=== PATIENT | female | born 1945 | race Caucasian/White ===

== ENCOUNTER 2019-01-08 05:30 | Day surgery (SDC) | payer MEDICARE, BC ==
[2019-01-08] MEDS ORDERED: Dextrose 5%-Lactated Ringers 1,000 ML IV SCH (06:15)
[2019-01-08] MEDS ORDERED: Ampicillin/Sulbactam Na 3 GM in Sodium Chloride 0.9% 100 ML IV ONE (07:15)
[2019-01-08] MEDS ORDERED: fentaNYL 100 MCG/2 ML SDV ONE (08:03)
[2019-01-08] MEDS ORDERED: Midazolam 1 MG/ML 2 ML SDV ONE (08:03)
[2019-01-08] MEDS ORDERED: Propofol 200 MG/20 ML SDV ONE ×2 (08:03→08:46)
[2019-01-08 10:13] VITALS: BP 122/94
--- NOTE | 2019-01-13 13:57 | OR ---
DATE OF PROCEDURE: 01/08/2019 PREOPERATIVE DIAGNOSES: 1. Epigastric pain. 2. Personal history of colonic polyps and family history of colon carcinoma. POSTOPERATIVE DIAGNOSES: 1. Epigastric pain with a large paraesophageal hernia and probable gastric volvulus. 2. Normal screening colonoscopy (no recurrent polyps identified). OPERATIVE PROCEDURE: 1. Esophagogastroduodenoscopy with antral biopsies for CLOtest (89216). 2. Flexible colonoscopy (47674). ANESTHESIA: IV sedation. INDICATION FOR PROCEDURE: This is a 73-year-old female presenting for evaluation of her upper GI tract related to some ongoing epigastric discomfort, presently is on ranitidine for that and is also to undergo colonoscopy with biopsies and/or polypectomy as indicated due to both family history of colon carcinoma and personal history of polyps. Potential risks of the procedure including bleeding and perforation were discussed, and the patient wishes to proceed. DETAILS OF PROCEDURE: The patient was taken to the operating room and placed in the left lateral decubitus position. IV sedation was administered, after which the upper GI endoscope was passed orally through the length of the esophagus, into the stomach with retroflexion view of the fundus, thereafter eventually through the pyloric channel and proximal duodenum. Findings included normal hypopharynx, larynx, upper esophageal sphincter, and esophageal body. The EG junction was noted to be shortened at around 35 cm with this being associated with significant hiatal hernia. As one passed the scope further into the stomach, the course of the stomach was quite distorted and there appeared to be a twisting pattern both seen on direct forward vision as well as retroflexion, consistent with a paraesophageal hernia that is becoming somewhat twisted in pattern on the gastric volvulus. The mucosa in this area of stomach was quite reddened and edematous consistent with some probable intermittent ischemia. Eventually, the gastric outlet could be identified and this was traversed and the pyloric channel and proximal duodenum were otherwise unremarkable. At this point, biopsies were obtained from the antrum and sent for CLOtest for H. pylori. Minimal bleeding from the biopsy site was seen and the procedure was then concluded. Attention was then taken to the colonoscopy. Initial digital rectal exam was performed and was unremarkable. Colonoscope was then placed into the rectum with retroflexion revealing uncomplicated hemorrhoidal columns. The scope was eventually passed to the cecum. The prep was fairly good with only a very small amount of liquid stool present. To that level, there were no diverticula, no areas of colitis, no polyps or other signs of neoplasia. The scope was then withdrawn, the above findings reconfirmed, and the procedure was then concluded. With regard to the gastric findings, the plan will be to proceed with CAT scan of the abdomen and pelvis to both evaluate the situation in the stomach as well as to rule out any other problem that might be associated with the patient's epigastric pain such as upper abdominal malignancies. This will be done this coming Saturday. We will see the patient back next Saturday for followup and establish treatment plan at that point. Chun Leyva MD /[id number]
== END 2019-01-08 10:30 | disposition home or self-care (01) ==
LOC: JP.SDS 05:30
PROVIDERS: ATTEND Surgery
DX: Z12.11 Encounter for screening for malignant neoplasm of colon (principal); K64.9 Unspecified hemorrhoids; K44.9 Diaphragmatic hernia without obstruction or gangrene; K31.89 Other diseases of stomach and duodenum; K21.9 Gastro-esophageal reflux disease without esophagitis; E03.9 Hypothyroidism, unspecified; E78.5 Hyperlipidemia, unspecified; Z88.2 Allergy status to sulfonamides; Z86.010 Personal history of colon polyps; Z80.0 Family history of malignant neoplasm of digestive organs
CPT/HCPCS: 43239; 87081; G0105; J0295; J2250; J2704; J3010; J7030; J7042

== ENCOUNTER 2019-01-16 09:41 | Inpatient (IN) | payer MEDICARE, BC ==
[~2019-01-16 09:41] MED LIST: Bupivacaine 0.5%/EPINEPHrine 1:200,000 50 ML MDV ONE
[2019-01-16] MEDS ORDERED: Acetaminophen 500 MG Tab PO ONE (10:00)
[2019-01-16] MEDS ORDERED: fentaNYL 250 MCG/5 ML SDV ONE ×2 (10:37→14:33)
[2019-01-16] MEDS ORDERED: Dexamethasone 4 MG/ML SDV ONE (10:37)
[2019-01-16] MEDS ORDERED: Glycopyrrolate 0.2 MG/ML 5 ML MDV ONE (10:37)
[2019-01-16] MEDS ORDERED: Propofol 200 MG/20 ML SDV ONE (10:37)
[2019-01-16] MEDS ORDERED: Ondansetron 4 MG/2 ML SDV ONE (10:37)
[2019-01-16] MEDS ORDERED: Neostigmine Methylsulfate 1 MG/ML 5 ML Syringe ONE (10:37)
[2019-01-16] MEDS ORDERED: Succinylcholine 200 MG/10 ML MDV ONE (10:37)
[2019-01-16] MEDS ORDERED: Rocuronium 50 MG/5 ML Vial ONE (10:37)
[2019-01-16] MEDS ORDERED: Scopolamine 1.5 MG Transdermal Patch TOP ONE (10:50)
[2019-01-16] MEDS ORDERED: Ropivacaine 44 ML, dexAMETHasone 8 MG, EPINEPHrine 0.4 MG, Sodium Chloride 0.9% 33.6 ML NERVRT SCH ×4 (11:00)
[2019-01-16] MEDS: Dextrose 5%-Lactated Ringers 1,000 ML IV SCH (13:24)
[2019-01-16] MEDS: cefOXitin 2 GM in Sodium Chloride 0.9% 50 ML IV ONE ×2 (14:25→16:48)
[2019-01-16] MEDS ORDERED: Lactated Ringers 1,000 ML ONE (15:01)
[2019-01-16] MEDS ORDERED: hydrOXYzine HCl 100 MG/2 ML SDV IM ONE (15:55)
[2019-01-16] MEDS ORDERED: Ondansetron 4 MG/2 ML SDV IVPUSH PRN (16:48)
[2019-01-16] MEDS ORDERED: HYDROmorphone 0.5 MG/0.5 ML Syringe IVPUSH PRN (16:48)
[2019-01-16] MEDS ORDERED: HYDROmorphone 1 MG/ML Syringe IV PRN (16:48)
[2019-01-16] MEDS ORDERED: Pantoprazole 40 MG Vial IV SCH (18:00)
[2019-01-16] MEDS: cefOXitin 2 GM in Sodium Chloride 0.9% 50 ML IV SCH (20:24)
[2019-01-16] MEDS: Metoprolol Tartrate 25 MG Tab PO SCH (20:24)
[2019-01-16] MEDS: Acetaminophen/HYDROcodone 325-5 MG Tab PO PRN (20:24)
[2019-01-17] MEDS ORDERED: Iopamidol 510 MG/ML 50 ML SDV PO ONE (00:11)
[2019-01-17] MEDS: cefOXitin 2 GM in Sodium Chloride 0.9% 50 ML IV SCH ×2 (02:40→07:51)
[2019-01-17] MEDS: Dextrose 5%-Lactated Ringers 1,000 ML IV SCH (02:40)
[2019-01-17] MEDS: Acetaminophen/HYDROcodone 325-5 MG Tab PO PRN ×4 (04:10→14:11)
--- NOTE | 2019-01-17 04:41 | CRLCR ---
Indication: Hiatal hernia Technique: Abdomen 2 view Comparison: None Findings/Impression: Two submitted images. Oral contrast has been administered. In the 1st image contrast is present within the distal esophagus and proximal stomach. Gastroesophageal junction is normal in position below the hemidiaphragm although there is some apparent rotation of the stomach extending into the left upper quadrant with some increased filling on the 2nd film. Note is made of prior surgery and this could represent postsurgical configuration, rotation of the stomach or an underlying proximal gastric lesion. Note is made of subcutaneous air along the chest/abdominal wall as well as small pneumoperitoneum and a right-sided Moises-Ferrer drain. Surgical clips are present in the right upper quadrant. Dilated loops of small bowel are present within the mid abdomen with a differential diagnosis of postoperative ileus or small-bowel obstruction. Right lower quadrant ostomy. Dictated by Brayan Lamar MD @ Jan 17 2019 4:32AM Signed by Dr. Brayan Lamar @ Jan 17 2019 4:39AM
[2019-01-17] MEDS: Levothyroxine 100 MCG, Levothyroxine 25 MCG PO SCH ×2 (07:38)
--- NOTE | 2019-01-17 07:52 | CRLCR ---
INDICATION: follow up UGI from earlier this morning HISTORY: Paraesophageal hernia repair. Evaluate for passage of contrast into the small bowel. COMPARISON: 01/17/2019, 0344 hours. TECHNIQUE: Single abdominal radiograph. FINDINGS: Pneumoperitoneum, consistent with the recent surgical procedure. There is a surgical drain in the right upper quadrant, with anastomotic sutures in the upper abdomen. Contrast is present within the stomach, and within the small bowel in the right lower quadrant. IMPRESSION: 1. Pneumoperitoneum, which is presumably related to the recent surgical procedure. By report, patient had a paraesophageal hernia repair. 2. There is contrast within the stomach and small bowel on the current exam. 3. Case discussed with Dr. Leyva of the referring clinical service, 01/17/2019, 0749 hours. Dictated by Delgado Alvarado MD @ 01/17/2019 7:50:26 AM Dictated by: Delgado Alvarado MD @ 01/17/2019 07:50:32 (Electronically Signed)
[2019-01-17] MEDS ORDERED: Dextrose 5%-Lactated Ringers 1,000 ML IV SCH (08:15)
[2019-01-17] MEDS: Celecoxib 200 MG Cap PO SCH (10:08)
[2019-01-17] MEDS: Aspirin 81 MG Tab.EC PO SCH (10:08)
[2019-01-17] MEDS: Metoprolol Tartrate 25 MG Tab PO SCH ×2 (10:08→20:05)
[2019-01-17] MEDS ORDERED: Pantoprazole 40 MG Tab.CR PO SCH (16:30)
[2019-01-18] MEDS: Acetaminophen/HYDROcodone 325-5 MG Tab PO PRN ×2 (04:22→08:38)
[2019-01-18] MEDS: Levothyroxine 100 MCG, Levothyroxine 25 MCG PO SCH ×2 (07:18)
[2019-01-18] MEDS ORDERED: Magnesium Hydroxide 400 MG/5 ML Susp 30 ML Cup PO PRN (07:59)
[2019-01-18] MEDS: Metoprolol Tartrate 25 MG Tab PO SCH ×2 (08:28→09:17)
[2019-01-18] MEDS: Celecoxib 200 MG Cap PO SCH (08:28)
[2019-01-18] MEDS: Aspirin 81 MG Tab.EC PO SCH (08:29)
[2019-01-18 09:18] VITALS: BP 118/59
--- NOTE | 2019-01-18 12:54 | DISCH ---
FINAL DIAGNOSES: 1. Recurrent paraesophageal diaphragmatic hernia. 2. Status post gastrostomy. 3. Gastric deserosalization, status post takedown of gastric adhesions. 4. Distended-appearing gallbladder consistent with chronic cholecystitis. 5. Treated hypothyroidism. 6. Hyperlipidemia. 7. Hypertension. 8. Recurrent dislocations of left hip. OPERATIVE PROCEDURE: This was done on 01/16, diagnostic laparoscopy with: 1. Repair of paraesophageal diaphragmatic hernia with mesh. 2. Takedown of previous gastrostomy. 3. Partial gastrectomy. 4. Cholecystectomy. SUMMARY: This is a 73-year-old, presenting with postprandial epigastric and right upper quadrant pain, who was noted to have a large recurrent paraesophageal diaphragmatic hernia, the last one being repaired in 2016. On day of admission, the patient underwent a diagnostic laparoscopy with repair of diaphragmatic hernia. The repair of this was somewhat simpler than expected. The pre-existing mesh was used to augment the repair, and the previous gastrostomy site which was still adherent, appeared to be distorting the stomach causing some of the gastric torsion and that was taken down. A portion of stomach was excised. Apart from that, there were some adhesions between the mesh and gastric fundus, which were also taken down. The patient's gallbladder was noted to be also quite distended and consistent with chronic cholecystitis, and cholecystectomy was performed. Postoperatively, the patient has done well. She is tolerating a full liquid diet without difficulty. The pain she had preoperatively seems to have abated. She will be discharged home on her usual home medications plus Flushing 5/325, 1 to 2 tabs q.4 hours p.r.n. pain #40 along with 2 doses of milk of magnesia which she can take p.r.n. for constipation. Follow up with Dr. Leyva at [facility] on 01/28/2019.
--- NOTE | 2019-01-19 08:37 | PN ---
DATE OF SERVICE: 01/17/2019 The patient has been afebrile with stable vital signs. She does not require much in the way of pain medications at this point and will be started on a full liquid diet. Laboratory studies look good, status post cholecystectomy yesterday. Initially, the upper GI x-rays did not show much in the way of gastric emptying, but later x-ray did show good emptying, so will be on a full liquid diet today. Will turn down IV rate, and she may be ready for discharge home tomorrow. Chun Leyva MD /[id number]
--- NOTE | 2019-01-20 08:57 | OR ---
DATE OF PROCEDURE: 01/16/2019 SURGEON: Chun Leyva MD PREOPERATIVE DIAGNOSIS: Recurrent paraesophageal diaphragmatic hernia with apparent gastric torsion on upper endoscopy. POSTOPERATIVE DIAGNOSES: 1. Recurrent paraesophageal diaphragmatic hernia with apparent gastric torsion on upper endoscopy. 2. Status post previous gastrostomy. 3. Area of gastric deserosalization, status post takedown of adhesions between gastric fundus and previously-placed mesh. 4. Distended and inflamed gallbladder consistent with chronic cholecystitis. OPERATIVE PROCEDURE: Diagnostic laparoscopy with, 1. Repair of recurrent paraesophageal diaphragmatic hernia with mesh (23869). 2. Takedown of gastrostomy (16195). 3. Partial gastrectomy (00638). 4. Cholecystectomy (27480). ANESTHESIA: General. BENCH MOLDER: Ladi Nichols PA-C. INDICATIONS FOR PROCEDURE: This is a 73-year-old with ongoing pain in the postprandial period that has been located in the epigastrium and toward the right of the abdomen. Recent endoscopy showed what appeared to be recurrent paraesophageal hernia, and some element of gastric torsion appeared evident at the time of the endoscopy as well. The plan is to proceed with a diagnostic laparoscopy and repair of the paraesophageal hernia. To what extent a new wrap needs to be undertaken, will be done under operative findings. Given the right-sided postprandial pain, we will also look at the gallbladder. If this appears to be diseased at all, we would proceed with concurrent cholecystectomy. Potential risks of procedure including bleeding, infection, injury to underlying viscera, possible incomplete relief of symptoms with the procedure were all reviewed as well as possibility of cardiopulmonary, septic, or hemorrhagic complications leading to , and the patient wishes to proceed. DETAILS OF PROCEDURE: The patient was taken to the operating room, and after general endotracheal anesthesia was induced, she was placed in a lithotomy position. Rivers catheter was inserted and the abdomen prepped and draped. At 15 cm inferior and 5 cm left of xiphoid process, a transverse incision was made and peritoneal cavity entered under direct vision with an Optiview trocar and inflated to 15 mmHg pressure with CO2. The laparoscope was then reinserted. No underlying trocar insertion site injuries were seen. Bilateral subcostal and transversus abdominis plane blocks were then placed, and at that point, 4 additional trocars were placed across the upper and mid abdomen. The initial finding was that of the previous gastrostomy being associated with quite a bit in the way of adhesions. The stomach was also adherent to the abdominal wall and this, with the onset of the new paraesophageal hernia, resulted in quite a bit in the way of distortion of the course of the stomach, creating the appearance of the torsion seen on upper endoscopy. The gastrostomy site was then taken down. This was initially taken away from the abdominal wall by means of electrocautery, and the cauterized edges of the stomach were then divided with the GUSTAVO purple loads and a small segment of stomach was delivered from the field. The patient's paraesophageal hernia was involving the left side of the fundus, prolapsing into an area along the existing esophagus. This area was gradually mobilized downward. Some of the stomach that was adherent to the previously placed mesh site was deserosalized during the course of that dissection, and that area was resected with a GUSTAVO stapler. At that point, the hernia was satisfactorily decompressed. The previously-placed mesh was then used with 0 Ethibond sutures reinforced with PTFE pledgets to close the defect to allow just the amount of volume of the esophagus. The Mckenna-type wrap was then reinforced with 2 additional 0 Ethibond sutures reinforced with PTFE pledgets using the remaining gastric fundus and wrapping around the distalmost esophagus. Once this phase was completed, we then examined the gallbladder. The gallbladder was quite enlarged, distended, and somewhat edematous in appearance, consistent with a probable chronic cholecystitis. Given this, we decided to proceed with a cholecystectomy. The gallbladder was retracted anteriorly and laterally and dissection began on the gallbladder neck and continued around the gallbladder neck/cystic duct junction. That area was well identified, as was the adjacent cystic artery. The cystic duct/gallbladder junction was then taken with a GUSTAVO blanco load, as this was quite edematous and looked like it might not hold the clips well. The artery was then divided with zi as well, and some additional branches were hemoclipped behind the gallbladder neck as it was dissected away from the liver. The gallbladder was then taken off the gallbladder bed with the Harmonic scalpel and delivered through the right lateral trocar site. At this point, no further problems noted. Moises-Ferrer drain was placed in the right lateral trocar site and placed into the area of the gallbladder bed. The trocars were then removed and the fascia at the 12 mm sites was closed with 0 Vicryl stitch and skin with 4-0 Vicryl skin stitch. The patient was taken to the recovery room in satisfactory condition. Physician reproductive healthcare assistant, Ladi Nichols, played an essential role in assisting in this case helping to position the patient, retract structures as needed, as well as suturing and cutting sutures when indicated. Her presence improved patient safety and decreased the operative time. Chun Leyva MD /[id number]
== END 2019-01-18 10:56 | disposition home or self-care (01) | DRG 328 ==
LOC: JP.MS 09:41 → JP.SDS 09:41 → EDSTATUS 11:00 → JP.MS 15:30
PROVIDERS: ADMIT Surgery; ATTEND Surgery
PROC: 0BUT4JZ Supplement Diaphragm with Synthetic Substitute, Percutaneous Endoscopic Approach (ICD-10-PCS; principal; 2019-01-16)
PROC: 0DQ44ZZ Repair Esophagogastric Junction, Percutaneous Endoscopic Approach (ICD-10-PCS; 2019-01-16)
PROC: 0FT44ZZ Resection of Gallbladder, Percutaneous Endoscopic Approach (ICD-10-PCS; 2019-01-16)
PROC: 0DB64ZZ Excision of Stomach, Percutaneous Endoscopic Approach (ICD-10-PCS; 2019-01-16)
DX: K44.9 Diaphragmatic hernia without obstruction or gangrene (principal); K31.89 Other diseases of stomach and duodenum; K81.1 Chronic cholecystitis; Z88.2 Allergy status to sulfonamides; Z79.82 Long term (current) use of aspirin; E03.9 Hypothyroidism, unspecified; E78.5 Hyperlipidemia, unspecified; I10 Essential (primary) hypertension; Z87.19 Personal history of other diseases of the digestive system; K66.0 Peritoneal adhesions (postprocedural) (postinfection); Z87.39 Personal history of other diseases of the musculoskeletal system and connective tissue
CPT/HCPCS: 36415; 74018; 74240; 80053; 82247; 83735; 83880; 84075; 84100; 84443; 85025; 85027; 93005; A9270-GY; C1713; C9113; J0171; J0330; J0694; J1100; J1170; J2405; J2704; J2710; J2795; J3010; J3410; J3490; J7042; J7050; J7120; Q9967

== ENCOUNTER 2022-03-28 12:03 | Emergency (ER) | payer MEDICARE, BC ==
[2022-03-28 12:23] VITALS: BP 138/70; PULSE 51
== END 2022-03-28 13:52 | disposition home or self-care (01) ==
LOC: JP.ED 12:03
DX: S76.012A Strain of muscle, fascia and tendon of left hip, initial encounter (principal); E03.9 Hypothyroidism, unspecified; E66.9 Obesity, unspecified; Z68.30 Body mass index [BMI] 30.0-30.9, adult; Z88.2 Allergy status to sulfonamides; Z79.82 Long term (current) use of aspirin; Z79.899 Other long term (current) drug therapy; Z90.710 Acquired absence of both cervix and uterus; X50.1XXA Overexertion from prolonged static or awkward postures, initial encounter
CPT/HCPCS: 73501-26-LT; 73501-LT; 99283

== ENCOUNTER 2023-10-28 08:04 | Day surgery (SDC) | payer MEDICARE, BC ==
[~2023-10-28 08:04] MED LIST changes: -Bupivacaine 0.5%/EPINEPHrine 1:200,000 50 ML MDV ONE; +Propofol 200 MG/20 ML SDV ONE; +fentaNYL 50 MCG/ML SDV ONE
[2023-10-28] MEDS: Lactated Ringers 1,000 ML IV SCH (09:52)
[2023-10-28] MEDS ORDERED: Propofol 200 MG/20 ML SDV ONE (10:17)
[2023-10-28 11:29] VITALS: BP 137/83; PULSE 63
== END 2023-10-28 11:34 | disposition home or self-care (01) ==
LOC: JP.SDS 08:04
PROVIDERS: ATTEND Student in an Organized Health Care Education/Training Program
DX: D12.4 Benign neoplasm of descending colon (principal); K59.00 Constipation, unspecified; Z86.010 Personal history of colon polyps; E78.5 Hyperlipidemia, unspecified; Z87.891 Personal history of nicotine dependence; Z79.82 Long term (current) use of aspirin; Z79.899 Other long term (current) drug therapy; Z88.2 Allergy status to sulfonamides
CPT/HCPCS: 45380; 88305; J2704; J3010; J7120

== ENCOUNTER 2023-11-13 22:45 | Emergency (ER) | payer MEDICARE, BC ==
[2023-11-14] MEDS: Sodium Chloride 0.9% 10 ML Syringe FLUSH PRN (00:22)
[2023-11-14 00:23] LABS: BASOPHILS ABSOLUTE AUTO 0.05 K/uL (0.00-0.10); BASOPHILS PERCENT AUTO 0.4 % (0.1-1.3); EOSINOPHILS ABSOLUTE AUTO 0.09 K/uL (0.00-0.40); EOSINOPHILS PERCENT AUTO 0.7 % (0.0-5.4); HEMOGLOBIN 8.4 g/dL (11.2-15.5); IMMATURE GRAN ABSOLUTE AUTO 0.11 K/uL (0.00-0.23); IMMATURE GRAN PERCENT AUTO 0.9 % (0.0-0.7); LYMPHOCYTES ABSOLUTE AUTO 1.41 K/uL (0.8-3.3); LYMPHOCYTES PERCENT AUTO 11.6 % (11.4-47.7); MEAN CORPUSCULAR HEMOGLOBIN 31.2 pg (31.6-35.5); MEAN CORPUSCULAR HGB CONC 33.6 g/dL (31.6-35.5); MEAN CORPUSCULAR VOLUME 92.9 fL (81.4-99.0); MONOCYTES ABSOLUTE AUTO 0.71 K/uL (0.20-0.90); MONOCYTES PERCENT AUTO 5.8 % (3.3-12.6); NEUTROPHILS ABSOLUTE AUTO 9.83 K/uL (1.0-7.6); NEUTROPHILS PERCENT AUTO 80.6 % (40.0-78.1); PLATELET COUNT,PLT 250 K/uL (130-375); RED BLOOD CELL COUNT 2.69 M/uL (3.77-5.24); WHITE BLOOD CELL COUNT,WBC 12.2 K/uL (3.2-11.0)
[2023-11-14 00:50] LABS: CORONAVIRUS COVID-19 NAA NEGATIVE (NEGATIVE); INFLUENZA A NAA NEGATIVE (NEGATIVE); INFLUENZA B NAA NEGATIVE (NEGATIVE); RESPIRATORY SYNCYTIAL VIR NAA NEGATIVE (NEGATIVE)
[2023-11-14 00:54] LABS: ANION GAP 11.4 mmol/L (5.0-14.0); BLOOD UREA NITROGEN,BUN 57 mg/dL (7-18); CARBON DIOXIDE,CO2 27 mmol/L (21-32); CHLORIDE,CL 104 mmol/L (100-108); CREATININE 0.9 mg/dL (0.6-1.0); EST CRCL DRUG DOSING (CG) 48.23 mL/min; ESTIMATED GFR 65 mL/min (>60); GLUCOSE RANDOM 137 mg/dL (74-106); POTASSIUM,K 4.4 mmol/L (3.6-5.2); SODIUM,NA 138 mmol/L (140-148)
[2023-11-14 00:55] LABS: A/G RATIO 0.9 (1.2-2.2); ALANINE AMINOTRANSFERASE,ALT 17 U/L (12-78); ALKALINE PHOSPHATASE 89 U/L (46-116); ASPARTATE AMNIOTRANSFERASE,AST 14 U/L (15-37); BILIRUBIN TOTAL 0.2 mg/dL (0.2-1.0); CALCIUM 8.5 mg/dL (8.5-10.1); PRO B-TYPE NATRIUR PEPT,BNPPRO 127 pg/mL (5-450); PROTEIN TOTAL,TP 6.5 g/dL (6.4-8.2)
[2023-11-14] MEDS: Sodium Chloride 0.9% 1,000 ML IV ONE (01:25)
[2023-11-14 01:32] LABS: APPEARANCE,URINE CLEAR (CLEAR); BILIRUBIN,URINE NEGATIVE (NEGATIVE); COLOR,URINE YELLOW (YELLOW); GLUCOSE,URINE NEGATIVE (NEGATIVE); KETONES,URINE NEGATIVE (NEGATIVE); LEUKOCYTE ESTERASE,URINE NEGATIVE (NEGATIVE); NITRITE,URINE NEGATIVE (NEGATIVE); OCCULT BLOOD,URINE NEGATIVE (NEGATIVE); PROTEIN,URINE NEGATIVE (NEGATIVE); UROBILINOGEN,URINE 0.2 EU/dL (0.2-1.0)
[2023-11-14 01:56] LABS: LACTIC ACID 1.1 mmol/L (0.4-2.0)
[2023-11-14 02:04] LABS: AMORPHOUS SEDIMENT,URINE FEW; BACTERIA,URINE FEW; EPITHELIAL CELLS,URINE RARE; MUCUS,URINE NOT SEEN; RBC,URINE 0-5 (0-5); WBC,URINE 0-5 (0-5)
[2023-11-14] MEDS: Pantoprazole 40 MG Vial IVPUSH ONE (03:45)
[2023-11-14 05:53] VITALS: BP 103/69; PULSE 90
== END 2023-11-14 05:58 ==
LOC: JP.ED 22:45
DX: K92.2 Gastrointestinal hemorrhage, unspecified (principal); K21.9 Gastro-esophageal reflux disease without esophagitis; R06.02 Shortness of breath; M19.90 Unspecified osteoarthritis, unspecified site; Z88.2 Allergy status to sulfonamides; Z88.8 Allergy status to other drugs, medicaments and biological substances; Z79.82 Long term (current) use of aspirin; Z79.899 Other long term (current) drug therapy; Z90.710 Acquired absence of both cervix and uterus
CPT/HCPCS: 0241U; 36415; 36430; 71046; 80053; 81001; 82272; 83605; 83690; 83880; 84443; 84484; 85018; 85025; 86850; 86900; 86901; 86920; 86922; 96361; 96374; 99285; C9113; J3490; J7030; P9016

== ENCOUNTER 2025-05-15 09:45 | Emergency (ER) | payer MEDICARE, BC ==
[2025-05-15 10:11] VITALS: BP 134/74; PULSE 73
== END 2025-05-15 10:56 | disposition home or self-care (01) ==
LOC: JP.ED 09:45
DX: U07.1 COVID-19 (principal); I10 Essential (primary) hypertension; K21.9 Gastro-esophageal reflux disease without esophagitis; Z90.710 Acquired absence of both cervix and uterus; Z88.2 Allergy status to sulfonamides; Z88.8 Allergy status to other drugs, medicaments and biological substances; Z79.82 Long term (current) use of aspirin; Z79.890 Hormone replacement therapy; Z79.899 Other long term (current) drug therapy
CPT/HCPCS: 99283